=== PATIENT | male | born 2000 | race African-American/Black ===

== ENCOUNTER → 2021-01-21 11:27 | Outpatient (CLI) | payer OTHER, SELFPAY ==
[2021-01-21 12:59] LABS: COVID19 -Nasal RAPID Negative (Negative)
== END ==
PROVIDERS: Visit Provider Physician Assistant
DX: Z01.812 Encounter for preprocedural laboratory examination (principal); Z20.822 Contact with and (suspected) exposure to COVID-19
CPT/HCPCS: 87635

== ENCOUNTER 2021-01-24 10:29 | Day surgery (SDC) | payer OTHER, SELFPAY ==
[2021-01-24] VITALS (11 sets, daily range): BP systolic 114–145; BP diastolic 79–94; PULSE 62–89; RESP 11–18; TEMP 36.5–37; O2SAT 98–100; BMI 27.3
[2021-01-24] MEDS: ACETAMINOPHEN 325 MG TABLET 975 MG PO (10:51)
[2021-01-24] MEDS: LACTATED RINGERS 1,000 ML 42 ML IV ×2 (10:52→14:04)
--- NOTE | 2021-01-24 11:59 | PM.PREOP ---
Pre-operative Note COVID-19 COVID-19 status: Negative Result date/Date tested (Pos, Neg/Pending): 01/21/21 Interval Note History & Physical reviewed/Exam performed by Physician: Yes Changes to H&P: No
--- NOTE | 2021-01-24 12:00 | P.HP_ITS ---
History of Present Illness History of Present Illness Date Patient Seen: 01/24/21 Time Patient Seen: 12:00 Chief complaint: SDC Narrative: 20-year-old male with history of peritonsillar abscess and persistent throat pain and respiratory obstruction presents for tonsillectomy and possible adenoidectomy due to failure of medical therapy. No interval health changes since clinic visit with Dr. Baltazar otoole 11/28/2020. No recent cough, cold, or fever. Patient History Medical History Recurrent tonsillitis Tonsillar hypertrophy Family & Social History Social History: household members none Tobacco & Substance use: Smoking Status Never smoker alcohol intake never Substance Use Type does not use Meds Home Medications and Allergies Home Medications Medication Instructions Recorded Confirmed Type No Known Home Medications 01/21/21 01/21/21 History Allergies Allergy/AdvReac Type Severity Reaction Status Date / Time No Known Drug Allergies Allergy Verified 01/21/21 10:36 Review of Systems Review of Systems ROS: Yes All systems reviewed with the patient and are negative except as otherwise documented Exam Vital Signs (past 8 hours): - 01/24/21 10:57 Temperature 98.6 F Pulse Rate 78 Respiratory Rate 16 Blood Pressure 131/87 Pulse Oximetry 99 Oxygen Delivery Method Room Air Oxygen Flow Rate 0 Narrative Exam Narrative: Well-developed well-nourished muscular male in no acute dis tress. Heart regular rate and rhythm without murmur, lungs clear to auscultation bilaterally Assessment & Plan Assessment & Plan narrative: Assessment: History of peritonsillar abscess, chronic tonsillitis, throat pain, upper airway obstruction secondary to tonsillar hypertrophy Plan: Following discussion of the material risks benefits complications and alternatives, the patient elected to proceed with tonsillectomy and possible adenoidectomy, due to failure of medical therapy.
--- NOTE | 2021-01-24 12:02 | P.OP_ITS ---
Operative Date/Time/Diagnoses Date of procedure: 01/24/21 Time of procedure: 12:58 Pre-op diagnosis: History of peritonsillar abscess, chronic tonsillitis, throat pain, upper airway obstruction secondary to tonsillar hypertrophy Post-op diagnosis: same Procedure & Clinicians Procedure: Tonsillectomy Same procedure as scheduled: Yes Indications: 20-year-old male with history of peritonsillar abscess in the above diagnoses presents for the above procedure due to failure of medical therapy. Following discussion of the material risks benefits complications and alternatives, he elected to proceed. Surgeon: Ariel Stratton Click Yes if Unassisted: Yes Anesthesia Type: General and Local Operative Notes Findings: Intact palate, single uvula, 3-4+ friable tonsils, 1+ adenoids ablated Closure Type: not applicable Specimen(s): none sent Estimated Blood Loss (mL): 20 Blood products transfused: none Procedure in detail: Following identification and confirmation of consent the patient was brought to the operating room suite and placed in the supine posit ion. General endotracheal anesthesia was administered. A head wrap, shoulder roll, and mouth gag were placed and a red rubber catheter was inserted through the nostril and out the mouth to retract the soft palate. Partially obstructive adenoid tissue was ablated with suction electrocautery on a setting of 40, without injury to the eustachian tube orifices or choana. The left tonsil was retracted medially and suction electrocautery on a setting of 30 was used to dissect the tonsil in a subcapsular plane, followed by hemostasis with the same. This process was repeated on the right side with identical findings. The tonsillar fossae were superficially infiltrated bilaterally with a 1:1 mixture of 1% lidocaine 1 100,000 epinephrine and 0.25% Marcaine 1 to 165674 epinephrine. Mouth gag and rubber catheter were removed and the patient was extubated in the operating room and taken to the recovery room in stable condition without known complication. Complications: none Post-operative Condition: stable Disposition: same day surgery Plan for aftercare: Tylenol alternating with Advil for baseline pain control, oxycodone as needed for breakthrough pain. Friend or family member to be with him at least for a few days. 3-4 L of fluids daily, call with any questions whatsoever.
--- NOTE | 2021-01-24 12:39 | SUR.OPER ---
Supine on padded OR bed, head on gel donut, right arm padded and tucked at side, left arm less than 90 degrees abduction,, legs uncrossed, safety belt at thigh, tape over blanket over lower legs . Warm blankets X2 placed. [place] x2 rolled and taped, placed under chin per surgeon.
[2021-01-24] MEDS: BUPIVACAINE 0.5% W/ EPI (PF) 30 ML VIAL INJ (12:44)
[2021-01-24] MEDS: LIDOCAINE 1% W/EPI 20 ML INJ (12:45)
--- NOTE | 2021-01-24 13:37 | SUR.OPER ---
During extubation, pt had oral bleeding per Dr. Stratton. Pt re-intubated. New sterile field set up. See Dr. Stratton post-operative note.
[2021-01-24] MEDS: HYDROMORPHONE 2 MG INJ IV (14:06)
[2021-01-24] MEDS: hydrOXYzine 50 MG/ML INJ 25 MG IM (14:06)
[2021-01-24] MEDS: ONDANSETRON 4 MG/2 ML INJ IV (14:06)
--- NOTE | 2021-01-24 14:18 | SUR.PHASEI ---
Patient arrives to PACU in stable condition, s/p tonsillectomy; no evidence of bleeding at this time noted. Speaking in full sentences. RR even and unlabored. Lungs clear to auscultation.
[2021-01-24] MEDS: OXYCODONE IR 5 MG TABLET PO (14:44)
[2021-01-24] MEDS: BENZOCAINE/MENTHOL 1 LOZ PKT 1 EACH PO (15:38)
== END 2021-01-24 15:55 | disposition home or self-care (01) ==
PROVIDERS: Referring Provider Otolaryngology; Visit Provider Otolaryngology
PROC: (CPT 42821; principal; 2021-01-24 12:15)
DX: J35.1 Hypertrophy of tonsils (principal); J98.8 Other specified respiratory disorders; K91.840 Postprocedural hemorrhage of a digestive system organ or structure following a digestive system procedure
CPT/HCPCS: 42821; J0330; J1100; J1170; J2250; J2405; J2704; J3010; J3410